=== PATIENT | male | born 1995 | race Caucasian/White ===

== ENCOUNTER 2025-01-16 20:08 | Inpatient (IN) | payer MEDICARE, MEDICAID ==
[~2025-01-16] VITALS: Ht 162.6 cm; Wt 52.1 kg
[2025-01-16 20:00] VITALS: PULSE 81
[2025-01-16] MEDS ORDERED: HYDROMORPHONE HCL 1 MG/ML INJ IV ONE (20:15)
--- NOTE | 2025-01-16 20:22 | ED.PDOC ---
History of Present Illness HPI Comments 29 y/o M is BIBA for c/o rectal pain and abscess, today. Per EMS report, patient is a transfer from [facility] in [place], [place] for higher-level of care after being found with a perianal fissure abscess via CT scan with IV contrast, earlier, today. Dr. Jaramillo spoke with [facility] and accepted the transfer for higher level of care. Patient reports on pain being ongoing for 1 year, waning in severity. He denies any rectal bleeding, constipation, urinary symptoms, fever, chills, or other associated symptoms or modifiers at this time. Chief Complaint: Abscess Time Seen by MD: 20:15 Reviewed Notes: Nurses Notes, Registered Dental Assistant Rda Notes, Medications, Allergies Allergies: Coded Allergies: Diphenhydramine (Unverified Allergy, Unknown, 01/16/25) Iodine (Unverified Allergy, Unknown, 01/16/25) Morphine (Unverified Allergy, Unknown, 01/16/25) Information Source: Patient, Emergency Med Personnel Mode of Arrival: EMS Severity: Moderate Timing: Hours Duration: Since onset Prehospital treatment: 12 Lead EKG, Access Nurse Past Medical History PAST MEDICAL HISTORY: Denies Surgical History: Denies all surgeries Family History Family History: Unknown Social History Smoker: Non-Smoker Alcohol: Denies ETOH Use Drugs: Marijuana, Methamphetamine, Other Lives In: Home Constitutional: denies: chills, diaphoresis, fatigue, fever, malaise, sweats, weakness, others EENTM: denies: blurred vision, double vision, ear bleeding, ear discharge, ear drainage, ear pain, ear ringing, eye pain, eye redness, hearing loss, mouth pain, mouth swelling, nasal discharge, nose bleeding, nose congestion, nose p ain, photophobia, tearing, throat pain, throat swelling, voice changes, others Respiratory: denies: cough, hemoptysis, orthopnea, SOB at rest, shortness of breath, SOB with excertion, stridor, wheezing, others Cardiovascular: denies: chest pain, dizzy spells, diaphoresis, Dyspnea on exertion, edema, irregular heart beat, left arm pain, lightheadedness, palpitations, PND, syncope, others Gastrointestinal: reports: others (Severe rectal pain); denies: abdomen distended, abdominal pain, blood streaked bowels, constipated, diarrhea, dysphagia, difficulty swallowing, hematemesis, melena, nausea, poor appetite, poor fluid intake, rectal bleeding, rectal pain, vomiting Genitourinary: denies: burning, dysuria, flank pain, frequency, hematuria, incontinence, penile discharge, penile sore, pain, testicle pain, testicle swelling, urgency, others Neurological: denies: dizziness, fainting, headache, left sided numbness, left sided weakness, numbness, paresthesia, pre-existing deficit, right sided numbness, right sided weakness, seizure, speech problems, tingling, tremors, weakness, others Musculoskeletal: denies: back pain, gout, joint pain, joint swelling, muscle pain, muscle stiffness, neck pain, others Integumetry: denies: bruises, change in color, change in hair/nails, dryness, laceration, lesions, lumps, rash, wounds, others Allergic/Immunocompromised: denies: Difficulty Healing, Frequent Infections, Hives, Itching, others Hematologic/Lymphatic: denies: anemia, blood clots, easy bleeding, easy bruising, swollen glands, others Endocrine: denies: excessive hunger, excessive sweating, excessive thirst, excessive urination, flushing, intolerance to cold, intolerance to heat, unexplained weight gain, unexplained weight loss, others Psychiatric: denies: anxiety, bipolar disorder, depression, hopeless, panic disorder, schizophrenia, sleepless, suicidal, others All Other Systems: Reviewed and Negative (as per HPI) Physical Exam General Appearance: Moderate Distress (Due to rectal pain concerns.), Normal HEENT: Normal ENT Inspection, Pharynx Normal, TMs Normal Neck: Full Range of Motion, Non-Tender, Normal, Normal Inspection Respiratory: Chest Non-Tender, Lungs Clear, No Accessory Muscle Use, No Respiratory Distress, Normal Breath Sounds Cardiovascular: No Edema, No JVD, No Murmur, No Gallop, Normal Peripheral Pulses, Regular Rate/Rhythm Breast Exam: Deferred Gastrointestinal: No Organomegaly, Non Tender, No Pulsatile Mass, Normal Bowel Sounds, Soft Genitalia: Deferred Pelvic: Deferred Rectal: Tenderness (Patient has a exquisite tenderness to palpation throughout the right-sided rectum extending into the gluteal region. Patient has a approximate 6 cm area of concern. Mild erythema.) Extremities: No calf tenderness, Normal capillary refill, Normal inspection, Normal range of motion, Non-tender, No pedal edema Neurologic: Alert, No Motor Deficits, Normal Affect, Normal Mood, No Sensory Deficits Cerebellar Function: Normal Reflexes: Normal Skin: Dry, Normal Color, Warm Lymphatic: No Adenopathy Was a procedure done? Was a procedure done?: No Differential Dx Considerations may include: abscess, anal fissure, hemorrhoids, amongst others X-Ray, Labs, Meds, VS Vital Signs Date Time Temp Pulse Resp B/P (MAP) Pulse Ox O2 Delivery O2 Flow Rate FiO2 01/16/25 23:00 52 13 99/66 (77) 96 01/16/25 22:00 54 12 100/64 (76) 94 01/16/25 21:10 68 12 100/64 01/16/25 20:40 68 14 137/97 01/16/25 20:30 14 14 96 Room Air* 0 21 01/16/25 20:12 97.9 54 16 100/60 (73) 98 97.9 01/16/25 20:12 98.6 68 14 137/97 (110) 96 98.6 Lab Test 01/16/25 22:32 01/16/25 20:31 01/16/25 20:23 Range/Units Urine Color Yellow Yellow Urine Clarity Clear Clear Urine pH 7.0 5.0-9.0 Urine Specific [place] 1.041 H 1.001-1.035 Urine Protein Negative Negative Urine Ketones 1+ H Negative Urine Blood Negative Negative /uL Urine Nitrite Negative Negative Urine Bilirubin Negative Negative Urine Urobilinogen Normal Negative mg/dL Urine Leukocyte Esterase Negative Negative /uL Urine RBC <1 0 - 3 /hpf Urine Microscopic WBC < 1 0-3 /HPF Urine Squamous Epithelial Cells None seen <5 /hpf Urine Bacteria None seen None Seen /hpf Urine Glucose Normal Normal mg/dL Urine Opiates Screen Neg NEGATIVE Urine Fentanyl Screen Pos NEGATIVE Urine Barbiturates Screen Neg NEGATIVE Urine Phencyclidine Screen Neg NEGATIVE Urine Amphetamines Screen Neg NEGATIVE Urine Benzodiazepines Screen Pos NEGATIVE Urine Cocaine Screen Pos NEGATIVE Urine Cannabinoids Screen Pos NEGATIVE White Blood Count 7.1 4.4-10.8 10^3/uL Red Blood Count 4.77 4.5-5.90 10^6/uL Hemoglobin 15.4 13.5-17.5 g/dL Hematocrit 44.4 41.0-53.0 % Mean Corpuscular Volume 93.1 80.0-100.0 fL Mean Corpuscular Hemoglobin 32.3 H 28.0-32.0 pg Mean Corpuscular Hemoglobin Concent 34.7 32.0-36.0 g/dL Red Cell Distribution Width 12.7 11.8-14.3 % Platelet Count 255 140-450 10^3/uL Mean Platelet Volume 8.8 6.9-10.8 fL Neutrophils (%) (Auto) 90.5 H 37.0-80.0 % Lymphocytes (%) (Auto) 6.6 L 10.0-50.0 % Monocytes (%) (Auto) 2.4 0.0-12.0 % Eosinophils (%) (Auto) 0.0 0.0-7.0 % Basophils (%) (Auto) 0.5 0.0-2.0 % Neutrophils # (Auto) 6.4 1.6-8.6 10 ^3/uL Lymphocytes # (Auto) 0.5 0.4-5.4 10 ^3/uL Monocytes # (Auto) 0.2 0-1.3 10 ^3/uL Eosinophils # (Auto) 0 0-0.8 10 ^3/uL Basophils # (Auto) 0 0-0.2 10 ^3/uL Nucleated Red Blood Cells 0.0 % Sodium Level 141 136-145 mmol/L Potassium Level 4.1 3.5-5.1 mmol/L Chloride Level 110 H 98-107 mmol/L Carbon Dioxide Level 23 20-31 mmol/L Anion Gap 8 5-15 Blood Urea Nitrogen 13 9-23 mg/dL Creatinine 0.96 0.700-1.30 mg/dL Glomerular Filtration Rate Calc 111 >90 mL/min BUN/Creatinine Ratio 13.5 10.0-20.0 Serum Glucose 121 H 74-106 mg/dL Lactic Acid Level 1.6 0.4-2.0 mmol/L Calcium Level 9.7 8.7-10.4 mg/dL Total Bilirubin 0.8 0.2-1.0 mg/dL Aspartate Amino Transferase (AST) 22 13-40 U/L Alanine Aminotransferase (ALT) 13 7-40 U/L Alkaline Phosphatase 78 46-116 U/L Total Protein 7.3 5.7-8.2 g/dL Albumin 4.5 3.2-4.8 g/dL POC Glucose 131 H 70-106 mg/dl Current Medications Medications (Trade) Dose Ordered Sig/Kallie Route Start Time Stop Time Status Last Admin Ondansetron HCl (Zofran) 4 mg ONCE ONCE IV 01/16/25 20:15 01/16/25 20:18 DC 01/16/25 20:41 Hydromorphone HCl (Dilaudid Injection) 1 mg ONCE ONCE IV 01/16/25 20:30 01/16/25 20:31 DC 01/16/25 20:40 X-Ray, Labs, Meds, VS Comment All laboratories performed the ED were evaluated by me personally. Patient did not have an elevated white blood cell count. Patient did test positive for some illicit drug use. Patient will be admitted for surgical evaluation tomorrow to assess the rectal abscess with fistula formation. Pain will be managed while at the facility. Time of 1ST Reevaluation: 20:45 Reevaluation 1ST: Improved Consultation: PCP Patient Education/Counseling: Diagnosis, Treatment Family Education/Counseling: Diagnosis, Treatment, No Family Present Departure 1 Departure Time of Disposition: 23:41 Impression: Primary Impression: Perianal abscess Disposition: ADMITTED INPATIENT Condition: Stable Discharged With: Self Critical Care Note Critical Care Time?: No Stability Stability form required: No Heart Score Heart Score: Heart Score Response (Comments) Value History N/A 0 EKG N/A 0 Age N/A 0 Risk Factors N/A 0 Troponin N/A 0 Total 0 I personally scribed for DAHIANA VASQUEZ PAC ([email or web address]) on 01/16/25 at 20:22. Electronically submitted by Sukhi Gongora ([email or web address]). DAHIANA VASQUEZ PAC Jan 16, 2025 20:22
[2025-01-16 20:30] VITALS: PULSE 14; RESP 14; O2SAT 96
[2025-01-16] MEDS: HYDROmorphone HCL 2 MG/ML VL/or syr IV ONE (20:40)
[2025-01-16] MEDS: ONDANSETRON HCL 4 MG/2 ML VIAL IV ONE (20:41)
[2025-01-16 20:55] LABS: Basophils # (auto) 0 10 ^3/uL (0-0.2); Basophils % (auto) 0.5 % (0.0-2.0); Eosinophils # (auto) 0 10 ^3/uL (0-0.8); Hematocrit 44.4 % (41.0-53.0); Hemoglobin 15.4 g/dL (13.5-17.5); Lymphocytes # (auto) 0.5 10 ^3/uL (0.4-5.4); Lymphocytes % (auto) 6.6 % (10.0-50.0); Mean Corpuscular Hemoglobin 32.3 pg (28.0-32.0); Mean Corpuscular Hgb Conc. 34.7 g/dL (32.0-36.0); Mean Corpuscular Volume 93.1 fL (80.0-100.0); Monocytes # (auto) 0.2 10 ^3/uL (0-1.3); Monocytes % (auto) 2.4 % (0.0-12.0); Neutrophils # (auto) 6.4 10 ^3/uL (1.6-8.6); Neutrophils % (auto) 90.5 % (37.0-80.0); Platelet Count (auto) 255 10^3/uL (140-450); Red Blood Cells 4.77 10^6/uL (4.5-5.90); Red Cell Distribution Width 12.7 % (11.8-14.3); White Blood Cell 7.1 10^3/uL (4.4-10.8)
[2025-01-16 21:11] LABS: Alanine Aminotransferase 13 U/L (7-40); Albumin 4.5 g/dL (3.2-4.8); Alkaline Phosphatase 78 U/L (46-116); Anion Gap 8 (5-15); Aspartate Aminotransferase 22 U/L (13-40); BUN/Creatinine Ratio 13.5 (10.0-20.0); Bilirubin, Total 0.8 mg/dL (0.2-1.0); Blood Urea Nitrogen 13 mg/dL (9-23); Calcium 9.7 mg/dL (8.7-10.4); Carbon Dioxide 23 mmol/L (20-31); Potassium 4.1 mmol/L (3.5-5.1); Sodium 141 mmol/L (136-145); Total Protein 7.3 g/dL (5.7-8.2)
[2025-01-16 21:12] LABS: Chloride 110 mmol/L (98-107); Glucose 121 mg/dL (74-106)
[2025-01-16 22:33] LABS: Urine Bacteria None Seen /hpf (None Seen)
[2025-01-16 22:43] LABS: Urine Blood Negative /uL (Negative); Urine Clarity Clear (Clear); Urine Color Yellow (Yellow); Urine Protein, UAD Negative (Negative); Urine Specific Gravity 1.041 (1.001-1.035); Urine Squamous Epithelial Cell None Seen /hpf (<5); Urine Urobilinogen Normal (Negative); Urine WBC < 1 /HPF (0-3)
[2025-01-16 22:51] LABS: Amphetamine Screen, Urine Neg (NEGATIVE); Barbiturate Scree,Urine Neg (NEGATIVE); Benzodiazephine Screen, Urine Pos (NEGATIVE); Cannabinoid Screen, Urine Pos (NEGATIVE); Cocaine Screen, Urine Pos (NEGATIVE); Opiate Scree,Urine Neg (NEGATIVE); Phencyclidine Screen, Urine Neg (NEGATIVE)
[2025-01-16] MEDS ORDERED: DOCUSATE SOD 100 MG CAP PO PRN (23:45)
[2025-01-16] MEDS ORDERED: MAALOX PLUS or MAALOX 30 ML PO PRN (23:45)
--- NOTE | 2025-01-17 | DVHHP2 ---
History of Present Illness Reason for Visit: anal History of Present Illness 29-year-old male past medical history of anal fissure and suspected abscess transferred here from [facility] for stated need of higher level of care according to the ED the patient was had a CT scan contrast earlier clearance for per management level stated chronic renal failure going on for the past year patient was also has been associated she was abuse history including marijuana methamphetamine and cocaine positive for multiple medications and history strokes some patient was for admission further evaluation patient was dated multiple allergies including Benadryl iodine and morphine however patient tolerated hurt anymore found him ED also stated have a CT contrast with the ED prior to transfer no sedated affect movement for her the evaluation Review of Systems Constitutional: Yes: Fever Eyes: No: Pain, Vision change, Conjunctivae inflammation, Eyelid inflammation, Other, Redness ENT: No: Ear pain, Ear discharge, Nose pain, Nose discharge, Nose congestion, Mouth pain, Mouth swelling, Throat pain, Throat swelling, Other Respiratory: No: Cough, Dry, Shortness of breath, SOB with excertion, Wheezing, Hemoptysis, Pleuritic Pain, Sputum, Wheezing, Other Cardiovascular: No: Chest Pain, Palpitations, Orthopnea, Paroxysmal Noc. Dyspnea, Edema, Lt Headedness, Other Gastrointestinal: Abdominal Pain; No: Nausea, Vomiting, Diarrhea, Constipation, Melena, Hematochezia, Other Genitourinary: No Dysuria, No Frequency, No Incontinence, No Hematuria, No Retention, No Other Musculoskeletal: No: other, neck pain, shoulder pain, arm pain, back pain, hand pain, leg pain, foot pain Skin: No: Rash, Lesions, Jaundice, Bruising, Other Neurological: No: Weakness, Numbness, Incoordination, Change in speech, Confusion, Seizures, Other Allergies: Coded Allergies: Diphenhydramine (Unverified Allergy, Unknown, 01/16/25) Iodine (Unverified Allergy, Unknown, 01/16/25) Morphine (Unverified Allergy, Unknown, 01/16/25) Medications Current Medications Medications Dose Ordered Sig/Kallie Route Start Time Stop Time Status Last Admin Dose Admin Sodium Chloride 1,000 ml @ 60 mls/hr [id number] IV 01/16/25 23:45 Lorazepam 0.5 mg Q6HP PRN PO 01/16/25 23:45 Al Hydrox/Mg Hydrox/Simethicone 30 ml Q6HP PRN PO 01/16/25 23:45 Docusate Sodium 100 mg BIDPRN PRN PO 01/16/25 23:45 Acetaminophen 650 mg Q6HP PRN PO 01/16/25 23:45 Temazepam 15 mg QHSP PRN PO 01/16/25 23:45 Hydromorphone HCl 1 mg Q4HP PRN IV 01/16/25 23:45 UNV Ondansetron HCl 4 mg Q4HP PRN IV 01/16/25 23:45 UNV Ceftriaxone Sodium 50 ml @ 100 mls/hr DAILY IV 01/17/25 00:00 UNV Exam Vital Signs Vital Signs Date Time Temp Pulse Resp B/P (MAP) Pulse Ox O2 Delivery O2 Flow Rate FiO2 01/16/25 23:00 52 13 99/66 (77) 96 01/16/25 20:30 Room Air* 0 21 01/16/25 20:12 97.9 97.9 Exam General Appearance: Moderate Distress (Due to rectal pain concerns.), Normal HEENT: Normal ENT Inspection, Pharynx Normal, TMs Normal Neck: Full Range of Motion, Non-Tender, Normal, Normal Inspection Respiratory: Chest Non-Tender, Lungs Clear, No Accessory Muscle Use, No Respiratory Distress, Normal Breath Sounds Cardiovascular: No Edema, No JVD, No Murmur, No Gallop, Normal Peripheral Pulses, Regular Rate/Rhythm Breast Exam: Deferred Gastrointestinal: No Organomegaly, Non Tender, No Pulsatile Mass, Normal Bowel Sounds, Soft Genitalia: Deferred Pelvic: Deferred Rectal: Tenderness (Patient has a exquisite tenderness to palpation throughout the right-sided rectum extending into the gluteal region. Patient has a approximate 6 cm area of concern. Mild erythema.) Extremities: No calf tenderness, Normal capillary refill, Normal inspection, Normal range of motion, Non-tender, No pedal edema Neurologic: Alert, No Motor Deficits, Normal Affect, Normal Mood, No Sensory Deficits Cerebellar Function: Normal Reflexes: Normal Skin: Dry, Normal Color, Warm Lymphatic: No Adenopathy Labs/Xrays Labs Test 01/16/25 22:32 01/16/25 20:31 01/16/25 20:23 Range/Units Urine Color Yellow Yellow Urine Clarity Clear Clear Urine pH 7.0 5.0-9.0 Urine Specific [place] 1.041 H 1.001-1.035 Urine Protein Negative Negative Urine Ketones 1+ H Negative Urine Blood Negative Negative /uL Urine Nitrite Negative Negative Urine Bilirubin Negative Negative Urine Urobilinogen Normal Negative mg/dL Urine Leukocyte Esterase Negative Negative /uL Urine RBC <1 0 - 3 /hpf Urine Microscopic WBC < 1 0-3 /HPF Urine Squamous Epithelial Cells None seen <5 /hpf Urine Bacteria None seen None Seen /hpf Urine Glucose Normal Normal mg/dL Urine Opiates Screen Neg NEGATIVE Urine Fentanyl Screen Pos NEGATIVE Urine Barbiturates Screen Neg NEGATIVE Urine Phencyclidine Screen Neg NEGATIVE Urine Amphetamines Screen Neg NEGATIVE Urine Benzodiazepines Screen Pos NEGATIVE Urine Cocaine Screen Pos NEGATIVE Urine Cannabinoids Screen Pos NEGATIVE White Blood Count 7.1 4.4-10.8 10^3/uL Red Blood Count 4.77 4.5-5.90 10^6/uL Hemoglobin 15.4 13.5-17.5 g/dL Hematocrit 44.4 41.0-53.0 % Mean Corpuscular Volume 93.1 80.0-100.0 fL Mean Corpuscular Hemoglobin 32.3 H 28.0-32.0 pg Mean Corpuscular Hemoglobin Concent 34.7 32.0-36.0 g/dL Red Cell Distribution Width 12.7 11.8-14.3 % Platelet Count 255 140-450 10^3/uL Mean Platelet Volume 8.8 6.9-10.8 fL Neutrophils (%) (Auto) 90.5 H 37.0-80.0 % Lymphocytes (%) (Auto) 6.6 L 10.0-50.0 % Monocytes (%) (Auto) 2.4 0.0-12.0 % Eosinophils (%) (Auto) 0.0 0.0-7.0 % Basophils (%) (Auto) 0.5 0.0-2.0 % Neutrophils # (Auto) 6.4 1.6-8.6 10 ^3/uL Lymphocytes # (Auto) 0.5 0.4-5.4 10 ^3/uL Monocytes # (Auto) 0.2 0-1.3 10 ^3/uL Eosinophils # (Auto) 0 0-0.8 10 ^3/uL Basophils # (Auto) 0 0-0.2 10 ^3/uL Nucleated Red Blood Cells 0.0 % Sodium Level 141 136-145 mmol/L Potassium Level 4.1 3.5-5.1 mmol/L Chloride Level 110 H 98-107 mmol/L Carbon Dioxide Level 23 20-31 mmol/L Anion Gap 8 5-15 Blood Urea Nitrogen 13 9-23 mg/dL Creatinine 0.96 0.700-1.30 mg/dL Glomerular Filtration Rate Calc 111 >90 mL/min BUN/Creatinine Ratio 13.5 10.0-20.0 Serum Glucose 121 H 74-106 mg/dL Lactic Acid Level 1.6 0.4-2.0 mmol/L Calcium Level 9.7 8.7-10.4 mg/dL Total Bilirubin 0.8 0.2-1.0 mg/dL Aspartate Amino Transferase (AST) 22 13-40 U/L Alanine Aminotransferase (ALT) 13 7-40 U/L Alkaline Phosphatase 78 46-116 U/L Total Protein 7.3 5.7-8.2 g/dL Albumin 4.5 3.2-4.8 g/dL POC Glucose 131 H 70-106 mg/dl Assessment/Plan Assessment/Plan admit to [facility] suspected perianal abscess accepted as a transfer for higher level of care continue with p.r.n. management for pain UA with IV hydration as per ED to be admitted for surgical evaluation positive drug use monitor for signs of withdrawal Plan discussed with: Patient My Orders Orders - JENNIFER PENDLETON MD Procedure Category Date Status Time Admit ADMIT 01/16/25 Transmitted 23:42 Code Status CODE 01/16/25 Transmitted 23:42 Vital Signs [facility] 01/16/25 In Process 23:42 Review Orders With [facility] 01/16/25 In Process Adm. 23:42 Consistent DIET 01/17/25 Transmitted Carb(Ccho)Diabetes Breakfast Sodium Chloride 0.9% PHA 01/16/25 In Process 23:45 Lorazepam Tablet PHA 01/16/25 In Process (Ativan Tablet) 23:45 Alum & Mag PHA 01/16/25 In Process Hydrox-Simethicone 23:45 Docusate Sodium PHA 01/16/25 In Process Capsule (Colace 23:45 Acetaminophen Tablet PHA 01/16/25 In Process (Tylenol Tablet) 23:45 Temazepam (Restoril) PHA 01/16/25 In Process 23:45 Notify Of Changes [facility] 01/16/25 In Process From Base 23:42 Advance Directive [facility] 01/16/25 In Process 23:42 Patient Condition ORDERS 01/16/25 Transmitted 23:42 Allergies [facility] 01/16/25 In Process 23:42 Hydromorphone PHA 01/16/25 Logged Injection (Dilaudid 23:45 Ondansetron Hcl PHA 01/16/25 In Process (Zofran) 23:45 Notify Md Of Changes [facility] 01/16/25 In Process From Base 23:42 Oxygen By Nasal RT 01/16/25 Transmitted Cannula 23:42 * Surgical Consult CONS 01/16/25 Transmitted Ceftriaxone 1gm/50ml PHA 01/17/25 Logged D5w (Rocephin) 00:00 Date of Service: Jan 16, 2025 Billing Provider: JENNIFER PENDLETON MD Common Visit Codes: [id number] INP/OBS CARE (HIGH) JENNIFER PENDLETON MD Jan 17, 2025 00:00
[2025-01-17] MEDS: cefTRIAXone 1GM/50ML D5W 50 ML IV SCH (00:26)
[2025-01-17] MEDS: SODIUM CHLORIDE 0.9% 1,000 ML IV SCH (00:28)
[2025-01-17] MEDS: HYDROmorphone HCL 2 MG/ML VL/or syr IV PRN (00:29)
[2025-01-17] MEDS ORDERED: PANT40TA2 PO (03:18)
[2025-01-17] MEDS ORDERED: CLON-1003 PO (03:18)
[2025-01-17] MEDS ORDERED: DIVA1TAB59 PO (03:18)
[2025-01-17 09:10] VITALS: BP 102/81; PULSE 62; RESP 20; TEMP 97.5; O2SAT 99
[2025-01-17] MEDS: LORazepam 0.5 MG TAB PO PRN (10:09)
--- NOTE | 2025-01-17 13:10 | DVHINCON2 ---
Date of service: Jan 17, 2025 History of Present Illness 29-year-old male with approximately one year history of perianal swelling without drainage now complaining of two day history of severe pain in the perianal region without drainage. Patient denies any fevers or chills. He is having normal bowel movements. CT of the abdomen and pelvis performed at the outside facility showed possible 2 cm perianal abscess with possible fistula formation. 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 Family History Noncontributory Social History Occasional tobacco. Denies any alcohol. Occasional marijuana and amphetamine Allergies: Coded Allergies: Diphenhydramine (Unverified Allergy, Unknown, 01/16/25) Iodine (Unverified Allergy, Unknown, 01/17/25) Iodine contrast Morphine (Unverified Allergy, Unknown, 01/16/25) Home Meds Reported Medications Divalproex Sodium (Divalproex Sodium Dr) 500 Mg Tab, 1 TAB PO BID, #60 TAB 1 Refill 01/17/25 Pantoprazole Sodium Sesquihydr (Protonix) 40 Mg Tab, 20 MG PO DAILY, #30 TAB 01/17/25 Clonazepam (Klonopin) 0.5 Mg Tab, 1 TAB PO DAILY, #30 TAB 01/17/25 Current Medications Current Medications Medications (Trade) Dose Ordered Sig/Kallie Route PRN Reason Start Time Stop Time Status Last Admin Sodium Chloride 1,000 ml @ 60 mls/hr [id number] IV 01/16/25 23:45 01/17/25 00:28 Lorazepam (Ativan Tablet) 0.5 mg Q6HP PRN PO ANXIETY 01/16/25 23:45 01/17/25 10:09 Al Hydrox/Mg Hydrox/Simethicone (Maalox Plus) 30 ml Q6HP PRN PO FOR STOMACH DISTRESS 01/16/25 23:45 Docusate Sodium (Colace Capsule) 100 mg BIDPRN PRN PO FOR CONSTIPATION 01/16/25 23:45 Acetaminophen (Tylenol Tablet) 650 mg Q6HP PRN PO PAIN SCALE 1-3 OR TEMP>100.4 01/16/25 23:45 Temazepam (Restoril) 15 mg QHSP PRN PO FOR INSOMNIA 01/16/25 23:45 Hydromorphone HCl (Dilaudid Injection) 1 mg Q4HP PRN IV SEVERE PAIN (7-10 PAIN SCALE) 01/16/25 23:45 01/17/25 05:48 Ondansetron HCl (Zofran) 4 mg Q4HP PRN IV NAUSEA / VOMITING 01/16/25 23:45 Ceftriaxone Sodium 50 ml @ 100 mls/hr DAILY IV 01/17/25 00:00 01/17/25 10:05 Vital Signs Vital Signs Date Time Temp Pulse Resp B/P (MAP) Pulse Ox O2 Delivery O2 Flow Rate FiO2 01/17/25 09:10 97.5 62 20 102/81 (88) 99 97.5 01/16/25 20:30 Room Air* 0 21 Physical Exam GEN: Age-appropriate male in no acute distress. Alert. HEENT: Normocephalic atraumatic. Moist mucous membranes. Anicteric sclerae. CV: RRR Respiratory: CTAB ABD: Soft. Nontender nondistended Rectal: Digital rectal exam deferred due to patient discomfort. There is a 3 cm indurated swelling with tenderness to palpation in the right perianal region without drainage. No obvious signs of fistula. Labs/Diagnostic Data Labs Test 01/17/25 11:10 01/16/25 22:32 01/16/25 20:31 Range/Units POC Glucose 115 H 70-106 mg/dl Urine Color Yellow Yellow Urine Clarity Clear Clear Urine pH 7.0 5.0-9.0 Urine Specific [place] 1.041 H 1.001-1.035 Urine Protein Negative Negative Urine Ketones 1+ H Negative Urine Blood Negative Negative /uL Urine Nitrite Negative Negative Urine Bilirubin Negative Negative Urine Urobilinogen Normal Negative mg/dL Urine Leukocyte Esterase Negative Negative /uL Urine RBC <1 0 - 3 /hpf Urine Microscopic WBC < 1 0-3 /HPF Urine Squamous Epithelial Cells None seen <5 /hpf Urine Bacteria None seen None Seen /hpf Urine Glucose Normal Normal mg/dL Urine Opiates Screen Neg NEGATIVE Urine Fentanyl Screen Pos NEGATIVE Urine Barbiturates Screen Neg NEGATIVE Urine Phencyclidine Screen Neg NEGATIVE Urine Amphetamines Screen Neg NEGATIVE Urine Benzodiazepines Screen Pos NEGATIVE Urine Cocaine Screen Pos NEGATIVE Urine Cannabinoids Screen Pos NEGATIVE White Blood Count 7.1 4.4-10.8 10^3/uL Red Blood Count 4.77 4.5-5.90 10^6/uL Hemoglobin 15.4 13.5-17.5 g/dL Hematocrit 44.4 41.0-53.0 % Mean Corpuscular Volume 93.1 80.0-100.0 fL Mean Corpuscular Hemoglobin 32.3 H 28.0-32.0 pg Mean Corpuscular Hemoglobin Concent 34.7 32.0-36.0 g/dL Red Cell Distribution Width 12.7 11.8-14.3 % Platelet Count 255 140-450 10^3/uL Mean Platelet Volume 8.8 6.9-10.8 fL Neutrophils (%) (Auto) 90.5 H 37.0-80.0 % Lymphocytes (%) (Auto) 6.6 L 10.0-50.0 % Monocytes (%) (Auto) 2.4 0.0-12.0 % Eosinophils (%) (Auto) 0.0 0.0-7.0 % Basophils (%) (Auto) 0.5 0.0-2.0 % Neutrophils # (Auto) 6.4 1.6-8.6 10 ^3/uL Lymphocytes # (Auto) 0.5 0.4-5.4 10 ^3/uL Monocytes # (Auto) 0.2 0-1.3 10 ^3/uL Eosinophils # (Auto) 0 0-0.8 10 ^3/uL Basophils # (Auto) 0 0-0.2 10 ^3/uL Nucleated Red Blood Cells 0.0 % Sodium Level 141 136-145 mmol/L Potassium Level 4.1 3.5-5.1 mmol/L Chloride Level 110 H 98-107 mmol/L Carbon Dioxide Level 23 20-31 mmol/L Anion Gap 8 5-15 Blood Urea Nitrogen 13 9-23 mg/dL Creatinine 0.96 0.700-1.30 mg/dL Glomerular Filtration Rate Calc 111 >90 mL/min BUN/Creatinine Ratio 13.5 10.0-20.0 Serum Glucose 121 H 74-106 mg/dL Lactic Acid Level 1.6 0.4-2.0 mmol/L Calcium Level 9.7 8.7-10.4 mg/dL Total Bilirubin 0.8 0.2-1.0 mg/dL Aspartate Amino Transferase (AST) 22 13-40 U/L Alanine Aminotransferase (ALT) 13 7-40 U/L Alkaline Phosphatase 78 46-116 U/L Total Protein 7.3 5.7-8.2 g/dL Albumin 4.5 3.2-4.8 g/dL Assessment 1. Perianal abscess Plan/Recommendation 1. Incision and drainage of perianal abscess. Informed consent: The surgery and its risks including but not limited to infection, bleeding, possible future anal fistula formation were explained to the patient. All questions were answered to his satisfaction. He expressed verbal understanding and wished to proceed with the surgery. Plan discussed with: Patient LARRY QUIROS MD Jan 17, 2025 13:10
[2025-01-17 13:38] VITALS: BP 112/77; PULSE 60; RESP 17; TEMP 97.7; O2SAT 97
--- NOTE | 2025-01-17 14:45 | DVHPN2 ---
Reviewed: Care Plan, H&P, Labs, Medications, Previous Orders, Radiology Changes from previous H/P or p: No Changes Eyes: No Pain, No Vision change, No Conjunctivae inflammation, No Eyelid inflammation, No Other, No Redness ENT: No Ear pain, No Ear discharge, No Nose pain, No Nose discharge, No Nose congestion, No Mouth pain, No Mouth swelling, No Throat pain, No Throat swelling, No Other Cardiovascular: No Chest Pain, No Palpitations, No Orthopnea, No Paroxysmal Noc. Dyspnea, No Edema, No Lt Headedness, No Other Respiratory: No Cough, No Dry, No Shortness of breath, No SOB with excertion, No Wheezing, No Hemoptysis, No Pleuritic Pain, No Sputum, No Other Gastrointestinal: No Nausea, No Vomiting; Abdominal Pain; No Diarrhea, No Constipation, No Melena, No Hematochezia, No Other Genitourinary: No Dysuria, No Frequency, No Incontinence, No Hematuria, No Retention, No Other Musculoskeletal: No other, No neck pain, No shoulder pain, No arm pain, No back pain, No hand pain, No leg pain, No foot pain Skin: No Rash, No Lesions, No Jaundice, No Bruising, No Other Objective Vitals Vital Signs Date Time Temp Pulse Resp B/P (MAP) Pulse Ox O2 Delivery O2 Flow Rate FiO2 01/17/25 13:38 97.7 60 17 112/77 (89) 97 97.7 01/16/25 20:30 Room Air* 0 21 Intake/Output Intake and Output 01/17/25 07:00 Intake Total 50 ml Balance 50 ml Intake IV Total 50 ml Medications Current Medications Medications Dose Ordered Sig/Kallie Route Start Time Stop Time Status Last Admin Dose Admin Sodium Chloride 1,000 ml @ 60 mls/hr [id number] IV 01/16/25 23:45 01/17/25 00:28 60 MLS/HR Lorazepam 0.5 mg Q6HP PRN PO 01/16/25 23:45 01/17/25 10:09 0.5 MG Al Hydrox/Mg Hydrox/Simethicone 30 ml Q6HP PRN PO 01/16/25 23:45 Docusate Sodium 100 mg BIDPRN PRN PO 01/16/25 23:45 Acetaminophen 650 mg Q6HP PRN PO 01/16/25 23:45 Temazepam 15 mg QHSP PRN PO 01/16/25 23:45 Hydromorphone HCl 1 mg Q4HP PRN IV 01/16/25 23:45 01/17/25 05:48 1 MG Ondansetron HCl 4 mg Q4HP PRN IV 01/16/25 23:45 Ceftriaxone Sodium 50 ml @ 100 mls/hr DAILY IV 01/17/25 00:00 01/17/25 10:05 100 MLS/HR Laboratory Results Laboratory Tests 01/16/25 20:31 Chemistry Test 01/16/25 20:31 Albumin 4.5 g/dL (3.2-4.8) Calcium Level 9.7 mg/dL (8.7-10.4) Total Protein 7.3 g/dL (5.7-8.2) LFT Test 01/16/25 20:31 Alanine Aminotransferase (ALT) 13 U/L (7-40) Alkaline Phosphatase 78 U/L (46-116) Aspartate Amino Transferase (AST) 22 U/L (13-40) Total Bilirubin 0.8 mg/dL (0.2-1.0) Urinalysis Test 01/16/25 22:32 Urine Color Yellow (Yellow) Urine Clarity Clear (Clear) Urine pH 7.0 (5.0-9.0) Urine Specific [place] 1.041 (1.001-1.035) Urine Protein Negative (Negative) Urine Ketones 1+ (Negative) H Urine Blood Negative /uL (Negative) Urine Nitrite Negative (Negative) Urine Bilirubin Negative (Negative) Urine Urobilinogen Normal mg/dL (Negative) Urine Leukocyte Esterase Negative /uL (Negative) Urine RBC <1 /hpf (0 - 3) Urine Microscopic WBC < 1 /HPF (0-3) Urine Squamous Epithelial Cells None seen /hpf (<5) Urine Bacteria None seen /hpf (None Seen) Urine Glucose Normal mg/dL (Normal) Labs and/or images reviewed: Labs reviewed by me, Image(s) reviewed by me Assessment/Plan Assessment/Plan Perianal abscess: Lyric Fox planning for incision and drainage Plan discussed with: Patient Date of Service: Jan 17, 2025 Billing Provider: NATALIE BURGOS MD Common Visit Codes: [id number] INP/OBS CARE(HIGH) NATALIE BURGOS MD Jan 17, 2025 14:45
[2025-01-17 17:00] VITALS: BP 108/75; PULSE 54; TEMP 98.1; O2SAT 18
[2025-01-17 17:58] LABS: INR 0.98 (0.9-1.15); Prothrombin Time 10.4 sec (9.3-11.8)
[2025-01-17 20:00] VITALS: PULSE 81
[2025-01-17 21:00] VITALS: BP 102/75; PULSE 62; RESP 18; TEMP 97.8; O2SAT 97
[2025-01-17] MEDS: metroNIDAZOLE 500MG/100ML 100 ML IV SCH (22:23)
[2025-01-18 01:00] VITALS: BP 133/79; PULSE 56; RESP 17; TEMP 97.9; O2SAT 98
[2025-01-18 05:00] VITALS: BP 96/54; PULSE 74; RESP 18; TEMP 97.8; O2SAT 99
[2025-01-18 07:30] LABS: Basophils # (auto) 0 10 ^3/uL (0-0.2); Basophils % (auto) 0.5 % (0.0-2.0); Eosinophils # (auto) 0 10 ^3/uL (0-0.8); Eosinophils % (auto) 0.4 % (0.0-7.0); Hematocrit 43.2 % (41.0-53.0); Hemoglobin 14.6 g/dL (13.5-17.5); Lymphocytes # (auto) 2.8 10 ^3/uL (0.4-5.4); Lymphocytes % (auto) 38.9 % (10.0-50.0); Mean Corpuscular Hemoglobin 31.7 pg (28.0-32.0); Mean Corpuscular Hgb Conc. 33.7 g/dL (32.0-36.0); Monocytes # (auto) 0.8 10 ^3/uL (0-1.3); Monocytes % (auto) 11.3 % (0.0-12.0); Neutrophils # (auto) 3.5 10 ^3/uL (1.6-8.6); Neutrophils % (auto) 48.9 % (37.0-80.0); Platelet Count (auto) 235 10^3/uL (140-450); Red Cell Distribution Width 12.7 % (11.8-14.3); White Blood Cell 7.2 10^3/uL (4.4-10.8)
[2025-01-18 07:48] LABS: Chloride 106 mmol/L (98-107); Sodium 139 mmol/L (136-145)
[2025-01-18 07:49] LABS: Anion Gap 9 (5-15); Calcium 9.3 mg/dL (8.7-10.4); Carbon Dioxide 24 mmol/L (20-31)
[2025-01-18 07:54] LABS: BUN/Creatinine Ratio 14.4 (10.0-20.0); Blood Urea Nitrogen 14 mg/dL (9-23); Glucose 79 mg/dL (74-106)
[2025-01-18 07:57] LABS: Potassium 3.4 mmol/L (3.5-5.1)
[2025-01-18 09:22] VITALS: BP 102/69; PULSE 52; RESP 19; TEMP 97.8; O2SAT 98
[2025-01-18] MEDS ORDERED: fentaNYL CITRATE 100 MCG/2 ML VL ONE (10:22)
[2025-01-18] MEDS: BUPIVACAINE W/ EPINEPH 0.5% MPF 30ML VIAL IJ ONE (10:45)
[2025-01-18] MEDS ORDERED: PROPOFOL 10 MG/ML 20 ML IV ONE (10:45)
[2025-01-18] MEDS ORDERED: ONDANSETRON HCL 4 MG/2 ML VIAL ONE (10:45)
[2025-01-18] MEDS ORDERED: HYDROmorphone HCL 2 MG/ML VL/or syr ONE (10:47)
--- NOTE | 2025-01-18 10:56 | DVHOP2 ---
Operative Report - 2 Report Details Date: 01/18/25 Preop Diagnosis: 1. Right perianal abscess Postop Diagnosis: Same Surgeon: Larry Fox MD Trade Economist: None Anesthesiologist: Cesar Garcias CRNA [employer]UT[employer]ACHINE Anesthesia: General, Local Drains: None Consent: The surgery and its risks including but not limited to infection, bleeding, open surgical site requiring local wound care and possible development of anal fistula were explained to the patient. All questions were answered to his satisfaction. He expressed verbal understanding and wished to proceed with the surgery. Complications: None Estimated Blood Loss: 5 mL Fluids: 200 mL Name of Procedure Performed Incision and drainage of right perianal abscess Procedure Details Procedure Details: After induction of general anesthesia, patient was placed in the high lithotomy position and his anal region was prepped and draped in standard surgical fashion. Approximately 20 mL of 0.25% Marcaine with epinephrine was used as local anesthesia. An 18 gauge needle was used to locate the abscess cavity and approximately 1 mL of purulent fluid was aspirated and sent off for cultures. A quarter-inch incision was made over the skin top of the abscess cavity and this incision was extended into the abscess cavity Graham draining the cavity. The cavity was then well irrigated with copious amount of saline irrigation and packed with quarter-inch iodoform packing strips. Surgical site was cleaned and dried and dressings were applied. Sponge, needle, instrument count at the end of the case were reported to be correct by the nursing staff. The patient tolerated procedure well and at the time of dictation, he is being awakened from general anesthesia. Specimen: Gram stain and culture Condition Stable Disposition Still a Patient LARRY FOX MD Jan 18, 2025 10:56
[2025-01-18 11:01] VITALS: PULSE 64; RESP 11; O2SAT 97
--- NOTE | 2025-01-18 13:34 | DVHPN2 ---
Reviewed: Care Plan, H&P, Labs, Medications, Previous Orders, Radiology Changes from previous H/P or p: No Changes Eyes: No Pain, No Vision change, No Conjunctivae inflammation, No Eyelid inflammation, No Other, No Redness ENT: No Ear pain, No Ear discharge, No Nose pain, No Nose discharge, No Nose congestion, No Mouth pain, No Mouth swelling, No Throat pain, No Throat swelling, No Other Cardiovascular: No Chest Pain, No Palpitations, No Orthopnea, No Paroxysmal Noc. Dyspnea, No Edema, No Lt Headedness, No Other Respiratory: No Cough, No Dry, No Shortness of breath, No SOB with excertion, No Wheezing, No Hemoptysis, No Pleuritic Pain, No Sputum, No Other Gastrointestinal: No Nausea, No Vomiting; Abdominal Pain; No Diarrhea, No Constipation, No Melena, No Hematochezia, No Other Genitourinary: No Dysuria, No Frequency, No Incontinence, No Hematuria, No Retention, No Other Musculoskeletal: No other, No neck pain, No shoulder pain, No arm pain, No back pain, No hand pain, No leg pain, No foot pain Skin: No Rash, No Lesions, No Jaundice, No Bruising, No Other Objective Vitals Vital Signs Date Time Temp Pulse Resp B/P (MAP) Pulse Ox O2 Delivery O2 Flow Rate FiO2 01/18/25 11:53 62 18 120/82 01/18/25 09:22 97.8 98 97.8 01/18/25 08:25 Room Air* 0 21 Intake/Output Intake and Output 01/18/25 07:00 Intake Total 2160 ml Balance 2160 ml Intake Oral 800 ml IV Total 1360 ml # Voids 4 # Bowel Movements 2 Medications Current Medications Medications Dose Ordered Sig/Kallie Route Start Time Stop Time Status Last Admin Dose Admin Sodium Chloride 1,000 ml @ 60 mls/hr [id number] IV 01/16/25 23:45 01/18/25 01:20 60 MLS/HR Lorazepam 0.5 mg Q6HP PRN PO 01/16/25 23:45 01/17/25 23:32 0.5 MG Al Hydrox/Mg Hydrox/Simethicone 30 ml Q6HP PRN PO 01/16/25 23:45 Docusate Sodium 100 mg BIDPRN PRN PO 01/16/25 23:45 Acetaminophen 650 mg Q6HP PRN PO 01/16/25 23:45 Temazepam 15 mg QHSP PRN PO 01/16/25 23:45 Hydromorphone HCl 1 mg Q4HP PRN IV 01/16/25 23:45 01/18/25 11:53 1 MG Ondansetron HCl 4 mg Q4HP PRN IV 01/16/25 23:45 Ceftriaxone Sodium 50 ml @ 100 mls/hr DAILY IV 01/17/25 00:00 01/18/25 08:44 100 MLS/HR Metronidazole 100 ml @ 100 mls/hr Q8HR IV 01/17/25 22:00 01/18/25 12:48 100 MLS/HR Laboratory Results Laboratory Tests 01/18/25 06:15 Chemistry Test 01/18/25 06:15 Calcium Level 9.3 mg/dL (8.7-10.4) Coagulation Test 01/17/25 17:19 Prothrombin Time 10.4 sec (9.3-11.8) Prothrombin Time INR 0.98 (0.9-1.15) Urinalysis Test 01/16/25 22:32 Urine Color Yellow (Yellow) Urine Clarity Clear (Clear) Urine pH 7.0 (5.0-9.0) Urine Specific [place] 1.041 (1.001-1.035) Urine Protein Negative (Negative) Urine Ketones 1+ (Negative) H Urine Blood Negative /uL (Negative) Urine Nitrite Negative (Negative) Urine Bilirubin Negative (Negative) Urine Urobilinogen Normal mg/dL (Negative) Urine Leukocyte Esterase Negative /uL (Negative) Urine RBC <1 /hpf (0 - 3) Urine Microscopic WBC < 1 /HPF (0-3) Urine Squamous Epithelial Cells None seen /hpf (<5) Urine Bacteria None seen /hpf (None Seen) Urine Glucose Normal mg/dL (Normal) Labs and/or images reviewed: Labs reviewed by me, Image(s) reviewed by me Assessment/Plan Assessment/Plan Right Perianal abscess: Status post incision and drainage by Dr. Fox on 01/18/25; continue Rocephin Flagyl , Dilaudid 2 mg IV q.4 hours.prn Acute dehydration: IV fluids Plan discussed with: Patient My Orders Orders - NATALIE BURGOS MD Procedure Category Date Status Time Metronidazole PHA 01/17/25 In Process 500mg/100ml (Flagyl 22:00 Date of Service: Jan 18, 2025 Billing Provider: NATALIE BURGOS MD Common Visit Codes: [id number] INP/OBS CARE(HIGH) NATALIE BURGOS MD Jan 18, 2025 13:34
[2025-01-18] MEDS: HYDROMORPHONE HCL 1 MG/ML INJ IV ONE (14:36)
[2025-01-18 16:45] VITALS: BP 111/74; PULSE 46; RESP 20; TEMP 98.1; O2SAT 99
[2025-01-18] MEDS: HYDROmorphone HCL 2 MG/ML VL/or syr IV PRN (17:44)
[2025-01-18] MEDS: PANTOPRAZOLE 40 MG TAB PO ONE (20:54)
[2025-01-18 21:00] VITALS: BP_SYST 109; BP_DIAS 70; BP_DIAS 71; PULSE 51; PULSE 61; RESP 17; RESP 18; TEMP 97.8; TEMP 97.9; O2SAT 95; O2SAT 97
[2025-01-18] MEDS: ONDANSETRON HCL 4 MG/2 ML VIAL IV PRN (23:16)
[2025-01-19] VITALS (7 sets, daily range): BP systolic 106–144; BP diastolic 67–96; PULSE 51–85; RESP 16–18; TEMP 97.6–98.4; O2SAT 96–99
[2025-01-19] MEDS: PANTOPRAZOLE 40 MG TAB PO SCH (05:28)
--- NOTE | 2025-01-19 09:38 | DVHPN2 ---
Progress Note - Dictate Date Seen: Jan 19, 2025 Medical Necessity Reason Pt with a Central, PICC or Fol: No Subjective E: no major events o/n. doing better. vital signs Vital Sign Date Time Temp Pulse Resp B/P (MAP) Pulse Ox O2 Delivery O2 Flow Rate FiO2 01/19/25 06:58 60 17 109/63 01/19/25 05:00 97.6 99 97.6 01/18/25 20:00 Room Air* 0 21 Total Intake and Output 01/18/25 01/18/25 01/19/25 15:00 23:00 07:00 Intake Total 100 ml 100 ml Balance 100 ml 100 ml medications Current Medications Medications Dose Ordered Sig/Kallie Route Start Time Stop Time Status Last Admin Dose Admin Sodium Chloride 1,000 ml @ 60 mls/hr [id number] IV 01/16/25 23:45 01/19/25 06:46 60 MLS/HR Lorazepam 0.5 mg Q6HP PRN PO 01/16/25 23:45 01/18/25 13:43 0.5 MG Al Hydrox/Mg Hydrox/Simethicone 30 ml Q6HP PRN PO 01/16/25 23:45 Docusate Sodium 100 mg BIDPRN PRN PO 01/16/25 23:45 Acetaminophen 650 mg Q6HP PRN PO 01/16/25 23:45 Temazepam 15 mg QHSP PRN PO 01/16/25 23:45 Ondansetron HCl 4 mg Q4HP PRN IV 01/16/25 23:45 01/18/25 23:16 4 MG Ceftriaxone Sodium 50 ml @ 100 mls/hr DAILY IV 01/17/25 00:00 01/19/25 08:48 100 MLS/HR Metronidazole 100 ml @ 100 mls/hr Q8HR IV 01/17/25 22:00 01/19/25 05:28 100 MLS/HR Hydromorphone HCl 2 mg Q4HPRN PRN IV 01/18/25 13:45 01/19/25 06:28 2 MG Pantoprazole Sodium 40 mg DAILY@0600 PO 01/19/25 06:00 01/19/25 05:28 40 MG objective GEN: NAD RECTA: surgical site healing well. clean. laboratory and microbiology Laboratory Tests 01/18/25 06:15 Test 01/18/25 06:15 Range/Units Serum Glucose 79 74-106 mg/dL Assessment/Plan A: 1. s/p I+D perianal abscess POD #1 doing well. P: 1. stable from surgery POV for DC. 2. wash surgical site with soap and water TID Plan discussed with: Patient LARRY QUIROS MD Jan 19, 2025 09:38
--- NOTE | 2025-01-19 14:51 | DVHPN2 ---
Reviewed: Care Plan, H&P, Labs, Medications, Previous Orders, Radiology Changes from previous H/P or p: No Changes Eyes: No Pain, No Vision change, No Conjunctivae inflammation, No Eyelid inflammation, No Other, No Redness ENT: No Ear pain, No Ear discharge, No Nose pain, No Nose discharge, No Nose congestion, No Mouth pain, No Mouth swelling, No Throat pain, No Throat swelling, No Other Cardiovascular: No Chest Pain, No Palpitations, No Orthopnea, No Paroxysmal Noc. Dyspnea, No Edema, No Lt Headedness, No Other Respiratory: No Cough, No Dry, No Shortness of breath, No SOB with excertion, No Wheezing, No Hemoptysis, No Pleuritic Pain, No Sputum, No Other Gastrointestinal: No Nausea, No Vomiting; Abdominal Pain; No Diarrhea, No Constipation, No Melena, No Hematochezia, No Other Genitourinary: No Dysuria, No Frequency, No Incontinence, No Hematuria, No Retention, No Other Musculoskeletal: No other, No neck pain, No shoulder pain, No arm pain, No back pain, No hand pain, No leg pain, No foot pain Skin: No Rash, No Lesions, No Jaundice, No Bruising, No Other Objective Vitals Vital Signs Date Time Temp Pulse Resp B/P (MAP) Pulse Ox O2 Delivery O2 Flow Rate FiO2 01/19/25 13:00 97.9 61 16 133/96 (108) 97 97.9 01/19/25 08:00 Room Air* 0 21 Intake/Output Intake and Output 01/19/25 07:00 Intake Total 200 ml Balance 200 ml Intake Oral 0 ml IV Total 200 ml # Voids 6 Medications Current Medications Medications Dose Ordered Sig/Kallie Route Start Time Stop Time Status Last Admin Dose Admin Sodium Chloride 1,000 ml @ 60 mls/hr [id number] IV 01/16/25 23:45 01/19/25 06:46 60 MLS/HR Lorazepam 0.5 mg Q6HP PRN PO 01/16/25 23:45 01/18/25 13:43 0.5 MG Al Hydrox/Mg Hydrox/Simethicone 30 ml Q6HP PRN PO 01/16/25 23:45 Docusate Sodium 100 mg BIDPRN PRN PO 01/16/25 23:45 Acetaminophen 650 mg Q6HP PRN PO 01/16/25 23:45 Temazepam 15 mg QHSP PRN PO 01/16/25 23:45 Ondansetron HCl 4 mg Q4HP PRN IV 01/16/25 23:45 01/19/25 12:08 4 MG Ceftriaxone Sodium 50 ml @ 100 mls/hr DAILY IV 01/17/25 00:00 01/19/25 08:48 100 MLS/HR Metronidazole 100 ml @ 100 mls/hr Q8HR IV 01/17/25 22:00 01/19/25 12:08 100 MLS/HR Hydromorphone HCl 2 mg Q4HPRN PRN IV 01/18/25 13:45 01/19/25 10:20 2 MG Pantoprazole Sodium 40 mg DAILY@0600 PO 01/19/25 06:00 01/19/25 05:28 40 MG Laboratory Results Laboratory Tests 01/18/25 06:15 Urinalysis Test 01/16/25 22:32 Urine Color Yellow (Yellow) Urine Clarity Clear (Clear) Urine pH 7.0 (5.0-9.0) Urine Specific [place] 1.041 (1.001-1.035) Urine Protein Negative (Negative) Urine Ketones 1+ (Negative) H Urine Blood Negative /uL (Negative) Urine Nitrite Negative (Negative) Urine Bilirubin Negative (Negative) Urine Urobilinogen Normal mg/dL (Negative) Urine Leukocyte Esterase Negative /uL (Negative) Urine RBC <1 /hpf (0 - 3) Urine Microscopic WBC < 1 /HPF (0-3) Urine Squamous Epithelial Cells None seen /hpf (<5) Urine Bacteria None seen /hpf (None Seen) Urine Glucose Normal mg/dL (Normal) Microbiology Microbiology Date/Time Source Procedure Growth Status 01/18/25 13:02 Other Gram Stain - Final Resulted 01/18/25 13:02 Other Anaerobic Culture Pending Resulted 01/18/25 13:02 Other Aerobic Culture - Preliminary Resulted Labs and/or images reviewed: Labs reviewed by me, Image(s) reviewed by me Assessment/Plan Assessment/Plan Right Perianal abscess: Status post incision and drainage by Dr. Fox on 01/18/25; continue Rocephin Flagyl , Dilaudid 2 mg IV q.4 hours.prn Acute dehydration: IV fluids Awaiting wound culture result Plan discussed with: Patient Date of Service: Jan 19, 2025 Billing Provider: NATALIE BURGOS MD Common Visit Codes: [id number] INP/OBS CARE(HIGH) NATALIE BURGOS MD Jan 19, 2025 14:51
[2025-01-19] MEDS: ACETAMINOPHEN 325 MG TAB PO PRN (15:23)
[2025-01-19] MEDS: TEMAZEPAM 15 MG CAP PO PRN (21:50)
[2025-01-20] VITALS (7 sets, daily range): BP systolic 104–142; BP diastolic 68–92; PULSE 57–86; RESP 17–20; TEMP 98–98.6; O2SAT 97–100
[2025-01-20] MEDS ORDERED: LEVO500T91 PO (11:25)
[2025-01-20] MEDS ORDERED: METR-344 PO (11:25)
[2025-01-20] MEDS ORDERED: HYDR-4902 PO (11:25)
--- NOTE | 2025-01-20 11:31 | DVHDS2 ---
Discharge Summary Date of Admission Jan 16, 2025 at 23:42 Date of Discharge: Jan 20, 2025 Admitting Diagnosis Perianal abscess Wounds: Perianal abscess Labs/Diagnostic Data: Laboratory Results Test 01/18/25 06:15 01/17/25 17:19 01/17/25 11:10 01/16/25 22:32 White Blood Count 7.2 10^3/uL (4.4-10.8) Red Blood Count 4.60 10^6/uL (4.5-5.90) Hemoglobin 14.6 g/dL (13.5-17.5) Hematocrit 43.2 % (41.0-53.0) Mean Corpuscular Volume 94.0 fL (80.0-100.0) Mean Corpuscular Hemoglobin 31.7 pg (28.0-32.0) Mean Corpuscular Hemoglobin Concent 33.7 g/dL (32.0-36.0) Red Cell Distribution Width 12.7 % (11.8-14.3) Platelet Count 235 10^3/uL (140-450) Mean Platelet Volume 9.1 fL (6.9-10.8) Neutrophils (%) (Auto) 48.9 % (37.0-80.0) Lymphocytes (%) (Auto) 38.9 % (10.0-50.0) Monocytes (%) (Auto) 11.3 % (0.0-12.0) Eosinophils (%) (Auto) 0.4 % (0.0-7.0) Basophils (%) (Auto) 0.5 % (0.0-2.0) Neutrophils # (Auto) 3.5 10 ^3/uL (1.6-8.6) Lymphocytes # (Auto) 2.8 10 ^3/uL (0.4-5.4) Monocytes # (Auto) 0.8 10 ^3/uL (0-1.3) Eosinophils # (Auto) 0 10 ^3/uL (0-0.8) Basophils # (Auto) 0 10 ^3/uL (0-0.2) Nucleated Red Blood Cells 0.0 % Sodium Level 139 mmol/L (136-145) Potassium Level 3.4 mmol/L (3.5-5.1) Chloride Level 106 mmol/L (98-107) Carbon Dioxide Level 24 mmol/L (20-31) Anion Gap 9 (5-15) Blood Urea Nitrogen 14 mg/dL (9-23) Creatinine 0.97 mg/dL (0.700-1.30) Glomerular Filtration Rate Calc 110 mL/min (>90) BUN/Creatinine Ratio 14.4 (10.0-20.0) Serum Glucose 79 mg/dL (74-106) Calcium Level 9.3 mg/dL (8.7-10.4) Prothrombin Time 10.4 sec (9.3-11.8) Prothrombin Time INR 0.98 (0.9-1.15) POC Glucose 115 mg/dl (70-106) Urine Color Yellow (Yellow) Urine Clarity Clear (Clear) Urine pH 7.0 (5.0-9.0) Urine Specific [place] 1.041 (1.001-1.035) Urine Protein Negative (Negative) Urine Ketones 1+ (Negative) Urine Blood Negative /uL (Negative) Urine Nitrite Negative (Negative) Urine Bilirubin Negative (Negative) Urine Urobilinogen Normal mg/dL (Negative) Urine Leukocyte Esterase Negative /uL (Negative) Urine RBC <1 /hpf (0 - 3) Urine Microscopic WBC < 1 /HPF (0-3) Urine Squamous Epithelial Cells None seen /hpf (<5) Urine Bacteria None seen /hpf (None Seen) Urine Glucose Normal mg/dL (Normal) Urine Opiates Screen Neg (NEGATIVE) Urine Fentanyl Screen Pos (NEGATIVE) Urine Barbiturates Screen Neg (NEGATIVE) Urine Phencyclidine Screen Neg (NEGATIVE) Urine Amphetamines Screen Neg (NEGATIVE) Urine Benzodiazepines Screen Pos (NEGATIVE) Urine Cocaine Screen Pos (NEGATIVE) Urine Cannabinoids Screen Pos (NEGATIVE) Test 01/16/25 20:31 Lactic Acid Level 1.6 mmol/L (0.4-2.0) Total Bilirubin 0.8 mg/dL (0.2-1.0) Aspartate Amino Transferase (AST) 22 U/L (13-40) Alanine Aminotransferase (ALT) 13 U/L (7-40) Alkaline Phosphatase 78 U/L (46-116) Total Protein 7.3 g/dL (5.7-8.2) Albumin 4.5 g/dL (3.2-4.8) Other Laboratory Tests 01/18/25 06:15 Brief Hx & Hospital Course: Admitted for right perianal abscess underwent incision and drainage by surgeon Dr. Fox. Treated with the antibiotics and pain medications cleared for discharge by surgeon. Discharged home. Prescription for Levaquin Flagyl [place] transmitted to pharmacy. He will follow up with surgeon in two weeks. Consults/Reason for consult Surgeon Dr. Fox Operations or Procedures Incision and Drainage of perianal abscess Condition at Discharge: Fair Final Diagnosis/Problems List Right Perianal abscess: Status post incision and drainage by Dr. Fox on 01/18/25; continue Rocephin Flagyl , Dilaudid 2 mg IV q.4 hours.prn Acute dehydration: IV fluids Discharge Disposition: Home Discharge Instruct/Medications Diet: Regular Activity: Light activity Follow Up/Referral: Follow up with surgeon Dr. Fox in two weeks Follow up with the primary Dr Medications: Flagyl Levaquin and [place] transmitted to pharmacy 35 (Time taken for discharge summary 35 minutes) Discharge Statement: "Patient was advised to return to the ER or call 911 if any headaches, dizziness, shortness of breath, chest pain, abdominal pain, bleeding, fevers, or worsening of medical condition. Patient was counseled about treatment plan, medications, possible side effects, patientverbalized understanding. All questions were answered to the best of my ability. This discharge took greater then 30 minutes in planning, reviewing documentation, counseling the patient, and discussing with other team members." ASSESSMENT ASSESSMENT Hospital Course Improved Assessment Right Perianal abscess: Status post incision and drainage by Dr. Fox on 01/18/25; continue Rocephin Flagyl , Dilaudid 2 mg IV q.4 hours.prn Acute dehydration: IV fluids Date of Service: Jan 20, 2025 Billing Provider: NATALIE BURGOS MD Common Visit Codes: [id number] DISCH DAY >30min NATALIE BURGOS MD Jan 20, 2025 11:31
== END 2025-01-20 20:47 | disposition home or self-care (01) | DRG 395 ==
LOC: EDBD 20:08 → ER 20:08 → OVERFLOW 23:42 → WEST WING 01-17 13:19 → UNDODISIN 01-20 17:10
PROVIDERS: ADMIT Family Medicine; ATTEND Family Medicine
PROC: 0D9Q3ZZ Drainage of Anus, Percutaneous Approach (ICD-10-PCS; principal; 2025-01-18 10:21)
DX: K61.0 Anal abscess (principal); N18.9 Chronic kidney disease, unspecified; E86.0 Dehydration; F14.10 Cocaine abuse, uncomplicated; F31.9 Bipolar disorder, unspecified; F12.10 Cannabis abuse, uncomplicated; F15.10 Other stimulant abuse, uncomplicated; Z88.5 Allergy status to narcotic agent; Z88.8 Allergy status to other drugs, medicaments and biological substances; Z91.041 Radiographic dye allergy status; Z79.899 Other long term (current) drug therapy
CPT/HCPCS: 36415; 80048; 80053; 80307; 81001; 82962; 83605; 85025; 85610; 86850; 86900; 86901; 87070; 87075; 87076; 87077; 87186; 87205; 96374; 96375; G0378; J2405; J2704; J3490